=== PATIENT | female | born 1990 | race Caucasian/White ===

== ENCOUNTER → 2023-06-26 10:21 | Outpatient (REF) | payer OTHER, SELFPAY ==
[2023-06-30 16:55] LABS: Varicella Zoster IgG (VZV) Positive
== END ==
LOC: OHS 10:21
PROVIDERS: ATTENDING PHYSICIAN Nurse Practitioner Family
DX: Z23 Encounter for immunization (principal)
CPT/HCPCS: 36415; 86787

== ENCOUNTER → 2023-10-13 07:55 | Outpatient (REF) | payer BC, SELFPAY ==
[2023-10-13 10:57] LABS: Glycohemoglobin (HgbA1c) 5.3 % (4.0-5.6)
[2023-10-13 11:12] LABS: ALT (SGPT) 16 U/L (0-35); AST (SGOT) 19 U/L (14-36); Albumin 4.6 g/dl (3.5-5.0); Alkaline Phosphatase 62 U/L (38-126); Blood Urea Nitrogen 16 mg/dl (7-17); Carbon Dioxide 25 mmol/L (22-30); Chloride 104 mmol/L (98-107); Glucose 88 mg/dl (70-99); HDL Cholesterol 49 mg/dl; LDL Cholesterol, Calculated 189 mg/dl; Potassium 5.1 mmol/L (3.5-5.1); Sodium 137 mmol/L (135-145); Total Cholesterol 277 mg/dl (50-199); Total Protein 7.3 g/dl (6.3-8.2); Triglyceride 199 mg/dl (10-149); Very Low Density Lipoprotein 39 mg/dl (0-30); eGFR > 60.00
[2023-10-13 11:33] LABS: Microalbumin, Random Urine 0.7 mg/dl (0.6-1.7); Microalbumin/creatinine Ratio 3.9 mg/g
[2023-10-13 12:11] LABS: Total Bilirubin 0.4 mg/dl (0.2-1.3)
[2023-10-13 19:25] LABS: Prolactin 106.4 ng/ml (3.0-18.6); Vitamin D, 25-OH*** 45.2 ng/mL (30-80)
[2023-10-13 19:38] LABS: TSH 1.06 uIU/ml (0.47-4.68)
== END ==
LOC: REG 07:55
PROVIDERS: ATTENDING PHYSICIAN Internal Medicine; FAMILY PHYSICIAN Nurse Practitioner Family
DX: E28.2 Polycystic ovarian syndrome (principal); R79.89 Other specified abnormal findings of blood chemistry
CPT/HCPCS: 36415; 80053; 80061; 82043; 82306; 82570; 83036; 84146; 84270; 84402; 84403; 84443

== ENCOUNTER → 2023-12-15 15:24 | Outpatient (REF) | payer BC, SELFPAY | LOC: CLAB 15:24 | PROVIDERS: ATTENDING PHYSICIAN Physician Assistant Medical | DX: R39.9 Unspecified symptoms and signs involving the genitourinary system (principal) | CPT/HCPCS: 87077; 87086; 87186 ==

== ENCOUNTER → 2024-05-14 10:48 | Outpatient (REF) | payer BC, SELFPAY ==
[2024-05-20 16:16] LABS: HPV, High Risk Not Detected; HPV, High Risk Source Cervical
== END ==
LOC: CPAP 10:48
PROVIDERS: ATTENDING PHYSICIAN Obstetrics & Gynecology
DX: Z01.419 Encounter for gynecological examination (general) (routine) without abnormal findings (principal)
CPT/HCPCS: 87624

== ENCOUNTER → 2024-07-22 07:52 | Outpatient (REF) | payer BC, SELFPAY ==
[2024-07-22 10:00] LABS: ALT (SGPT) 25 U/L (0-35); AST (SGOT) 25 U/L (14-36); Albumin 4.3 g/dl (3.5-5.0); Alkaline Phosphatase 56 U/L (38-126); Blood Urea Nitrogen 17 mg/dl (7-17); Calcium 9.4 mg/dl (8.4-10.2); Carbon Dioxide 25 mmol/L (22-30); Chloride 109 mmol/L (98-107); Glucose 94 mg/dl (70-99); HDL Cholesterol 57 mg/dl; LDL Cholesterol, Calculated 174 mg/dl; Potassium 4.4 mmol/L (3.5-5.1); Sodium 140 mmol/L (135-145); Total Bilirubin 0.4 mg/dl (0.2-1.3); Total Cholesterol 294 mg/dl (50-199); Total Protein 7.6 g/dl (6.3-8.2); Triglyceride 318 mg/dl (10-149); Very Low Density Lipoprotein 63 mg/dl (0-30); eGFR > 60.00
[2024-07-22 10:36] LABS: Microalbumin, Random Urine 3.9 mg/dl (0.6-1.7)
[2024-07-22 10:42] LABS: Microalbumin/creatinine Ratio 11.3 mg/g
[2024-07-22 10:51] LABS: Vitamin D, 25-OH*** 24.5 ng/mL (30-80)
[2024-07-22 11:51] LABS: Glycohemoglobin (HgbA1c) 5.4 % (4.0-5.6)
== END ==
LOC: HWLAB 07:52
PROVIDERS: ATTENDING PHYSICIAN Internal Medicine; FAMILY PHYSICIAN Nurse Practitioner Family
DX: R79.89 Other specified abnormal findings of blood chemistry (principal); E28.2 Polycystic ovarian syndrome
CPT/HCPCS: 36415; 80053; 80061; 82043; 82306; 82570; 83036; 84146; 84270; 84402; 84403; 84443

== ENCOUNTER → 2024-12-17 10:53 | Outpatient (REF) | payer BC, SELFPAY | LOC: REG 10:53 | PROVIDERS: FAMILY PHYSICIAN Nurse Practitioner Family | DX: Z00.00 Encounter for general adult medical examination without abnormal findings (principal) | CPT/HCPCS: 36415; 86480 ==

== ENCOUNTER → 2025-01-19 07:20 | Outpatient (REF) | payer BC, SELFPAY ==
[2025-01-19 10:06] LABS: ALT (SGPT) 32 U/L (0-35); AST (SGOT) 27 U/L (14-36); Albumin 4.2 g/dl (3.5-5.0); Alkaline Phosphatase 58 U/L (38-126); Blood Urea Nitrogen 15 mg/dl (7-17); Calcium 9.5 mg/dl (8.4-10.2); Carbon Dioxide 26 mmol/L (22-30); Chloride 105 mmol/L (98-107); Glucose 95 mg/dl (70-99); Potassium 4.2 mmol/L (3.5-5.1); Sodium 139 mmol/L (135-145); Total Protein 7.3 g/dl (6.3-8.2); eGFR > 60.00
[2025-01-19 10:21] LABS: Vitamin D, 25-OH*** 18.1 ng/mL (30-80)
[2025-01-19 10:34] LABS: TSH 0.76 uIU/ml (0.47-4.68)
== END ==
LOC: HWLAB 07:20
PROVIDERS: ATTENDING PHYSICIAN Internal Medicine; FAMILY PHYSICIAN Nurse Practitioner Family
DX: D35.2 Benign neoplasm of pituitary gland (principal); E55.9 Vitamin D deficiency, unspecified; R79.89 Other specified abnormal findings of blood chemistry
CPT/HCPCS: 36415; 80053; 82306; 84146; 84443

== ENCOUNTER 2025-02-28 05:13 | Emergency (ER) | payer BC, SELFPAY ==
[2025-02-28 05:16] VITALS: BP 135/78
[2025-02-28 05:58] LABS: HCG, Serum Qualitative Screen Negative
[2025-02-28 06:11] LABS: ALT (SGPT) 26 U/L (0-35); AST (SGOT) 28 U/L (14-36); Albumin 4.3 g/dl (3.5-5.0); Alkaline Phosphatase 57 U/L (38-126); Blood Urea Nitrogen 16 mg/dl (7-17); Calcium 9.1 mg/dl (8.4-10.2); Carbon Dioxide 24 mmol/L (22-30); Chloride 104 mmol/L (98-107); Glucose 119 mg/dl (70-99); Lipase 128 U/L (23-300); Potassium 4.6 mmol/L (3.5-5.1); Sodium 135 mmol/L (135-145); Total Protein 7.7 g/dl (6.3-8.2); eGFR > 60.00
[2025-02-28 06:15] LABS: Hematocrit 37.2 % (37.0-47.0); Hemoglobin 12.7 g/dL (12.0-16.0); Mean Corp Hgb Conc. 34.1 g/dL (33.0-37.0); Mean Corpuscular Volume 87.9 fL (81.0-99.0); Nucleated Red Blood Cells % 0 %; Platelet Count 310 10^3/uL (130-400); Red Cell Dist. Width 12.2 % (11.5-14.5)
--- NOTE | 2025-02-28 07:03 | ED.GENMED ---
History of Present Illness
General
Chief Complaint: Abdominal Pain
Source: patient
Time Seen by Provider: 02/28/25 06:57
History of Present Illness
History of Present Illness:
35-year-old female with no significant past medical history presents to the emergency department for evaluation of right upper quadrant abdominal pain that woke her up from sleep around 1 AM, initially 10 out of 10, currently 5 out of 10, pain was
radiating towards her right shoulder area accompanied with some mild nausea but no vomiting. Patient states about 8 years ago she had similar and was diagnosed with sludge within her gallbladder and was told that if symptoms continued she would
need to follow-up with general surgery but notes that she never had the recurring symptoms again up until [place] and then again last night. She did not take anything for her symptoms prior to arrival, currently denying anything for pain.
Denies any bowel changes, urinary symptoms, vaginal bleeding or discharge, no concern for . Social history noncontributory.
Past History
Past History
ED Past Medical History: Hypercholesterolemia
ED Past Surgical History: Other
Social History
Tobacco: Non-smoker
Alcohol: Occasional
Drug: None
Personal: Single
Living: with family
Employment: Employed
Review of Systems
Review of Systems
All Other Systems: ROS reviewed and negative except as documented in HPI and ROS
Phy Exam
Physical Exam
Physical Exam:
GENERAL: Alert , in no apparent distress
EYE: clear conjunctiva b/l
HEAD: NCAT
ENT: o/p clr, mmm.
CARDIAC: Regular rate and rhythm .
LUNGS: Clear breath sounds bilaterally, no acute respiratory distress, no wheezes/rales/rhonchi
ABDOMEN: Soft, without focal tenderness, no r/g, no cvat, negative Crandall sign, no tenderness at McBurney's point
NEUROLOGICAL: Alert and oriented
SKIN: Warm and dry, skin intact.
MUSCULOSKELETAL: well perfused.
PSYCH: Normal and appropriate interaction.
Scores
Heart Failure Risk
Heart Failure Risk Score: Not Applicable
Heart Score for Chest Pain Patients
STEMI patient?: Not applicable
Withdrawal Assessment of Alcohol
Withdrawal Assessment Completed?: Not applicable
Course
Orders/Labs/Results
Orders:
Orders
02/28/25 05:21
Test Result ONCE
02/28/25 05:26
Complete Blood Count/With Diff Urgent
Comprehensive Metabolic Panel Urgent
HCG, Serum Qualitative Screen Urgent
Lipase Urgent
02/28/25 07:03
US Abdomen Complete/Upper Urgent
Comment:
Reason For Exam: RUQ abd pain
Abnormal Lab Results
02/28/25
05:26
Absolute Neuts (auto) 7.3 H 10^3/uL
(1.4-6.5)
Absolute Monos (auto) 0.7 H 10^3/uL
(0.1-0.6)
Glucose 119 H mg/dl
(70-99)
02/28/25 05:26
02/28/25 05:26
Vital Signs
Initial and Last Documented VS:
Initial Vital Signs
Temp Pulse Resp BP Pulse Ox
97.9 F 73 16 135/78 98
02/28/25 05:16 02/28/25 05:16 02/28/25 05:16 02/28/25 05:16 02/28/25 05:16
Last Documented Vital Signs
Temp Pulse Resp BP Pulse Ox
97.9 F 74 16 112/64 98
02/28/25 05:16 02/28/25 09:49 02/28/25 09:49 02/28/25 09:49 02/28/25 09:49
MDM/Problems Addressed
Differential Diagnosis Includes:
Symptomatic cholelithiasis
Cholecystitis
GERD
Gastritis
PUD
Pancreatitis
MDM/Problems Addressed:
35 year old female presenting to ER for evaluation of sudden onset RUQ abdominal pain since 1am, pain improving, no current nausea. Did not take anything for symptoms and is currently declining any medications. Overall well appearing. Reassuring
abdominal exam. Labs initiated on arrival are reassuring. Will check US. Disposition pending
*Radiology
Radiology exam reviewed: radiology read reviewed
*Pulse Oximetry
SaO2: 98
Oxygen Mode of Delivery: Room air
Patient hypoxic: no
*Critical Care Note
Total Time (30-74mins, 75-104mins- exclusive of procedures): Not Applicable
Patient Management
Discussion with other providers: Transcribing Operator Head
Escalation/DeEscalation of care consider admission/obs:
Patient's ultrasound shows cholelithiasis with a 1.6 cm stone within the gallbladder neck. Patient remains with minimal pain. Discussed low-fat diet. I did notify general surgery who is okay with patient following up on an outpatient basis.
Discussed return precautions to the ER. Otherwise stable for discharge home.
ED Attending Note
-
Portions of this chart may have been created with voice recognition software.� Occasional wrong word or��sound alike� substitutions may have occurred due to the inherent limitations of voice recognition software.
Discharge Plan
Departure
Patient Disposition: Home (Routine Discharge)
Date of Disposition: 02/28/25
Time of Disposition: 09:40
Patient with high blood pressure during this ER visit?: No
Discharge Problem:
Biliary colic, Gallstones
Instructions: Gallstones - ED (DC)
Referrals:
Dameon Gutierrez MD [Active, Surgical]
UNKNOWN - PT DOES,NOT KNOW [Family Provider]
Interventions
Interventions:
*General Assessment Last Done: 02/28/25 07:34
*Neglect/Abuse Screening Last Done: 02/28/25 07:34
*ED COVID-19 Vaccine History Last Done: 02/28/25 07:34
*ED Influenza Vaccine History Last Done: 02/28/25 07:34
[facility] Risk Assessment Tool Last Done: 02/28/25 07:33
*Risk Screen - Suicide (C-SSRS) Last Done: 02/28/25 05:16
*Nursing Disposition Last Done: 02/28/25 09:50
NQ-Hlyhqs-Ixcejaccbb Assessment Last Done: 02/28/25 07:34
Discharge Date and Time
Discharge Date/Time: 02/28/25 09:55
Print Language: [id number]
[2025-02-28 07:32] VITALS: BMI 40.8
[2025-02-28 07:36] VITALS: BP 113/72
[2025-02-28 09:49] VITALS: BP 112/64
== END 2025-02-28 09:55 | disposition home or self-care (01) ==
LOC: EMR 05:13
PROVIDERS: Emergency Medicine; EMERGENCY PHYSICIAN Emergency Medicine
DX: K80.70 Calculus of gallbladder and bile duct without cholecystitis without obstruction (principal); M25.511 Pain in right shoulder; R11.0 Nausea; E78.00 Pure hypercholesterolemia, unspecified; Z88.2 Allergy status to sulfonamides
CPT/HCPCS: 99284; 76700; 80053; 83690; 84703; 85025